=== PATIENT | female | born 2000 | race Two or more races ===

== ENCOUNTER 2020-05-26 16:35 | Outpatient (CLI) | payer OTHER | END 2020-05-26 16:42 | disposition home or self-care (01) | LOC: LAB 16:35 | PROVIDERS: ATTEND General Practice | DX: Z32.00 Encounter for pregnancy test, result unknown (principal); N39.0 Urinary tract infection, site not specified; D64.89 Other specified anemias ==

== ENCOUNTER 2020-05-26 19:22 | Emergency (ER) | payer OTHER ==
[~2020-05-26] VITALS: Ht 167.6 cm; Wt 59.4 kg
== END 2020-05-26 22:14 | disposition home or self-care (01) ==
LOC: ER 19:22
DX: N20.1 Calculus of ureter (principal)

== ENCOUNTER → 2020-06-04 | Outpatient (CLI) | payer OTHER | END | disposition home or self-care (01) | LOC: TOM 08:16 | PROVIDERS: ATTEND General Practice | DX: N83.292 Other ovarian cyst, left side (principal); R10.84 Generalized abdominal pain ==

== ENCOUNTER 2021-07-21 10:42 | Outpatient (CLI) | payer OTHER | END 2021-07-21 10:46 | disposition home or self-care (01) | LOC: LAB 10:42 | DX: D51.3 Other dietary vitamin B12 deficiency anemia (principal); E55.9 Vitamin D deficiency, unspecified; N30.00 Acute cystitis without hematuria; E78.49 Other hyperlipidemia; N83.299 Other ovarian cyst, unspecified side ==

== ENCOUNTER → 2022-11-17 | Outpatient (CLI) | payer OTHER | END | disposition home or self-care (01) | LOC: SONOGRAMA 13:06 | PROVIDERS: ATTEND Obstetrics & Gynecology | DX: E03.9 Hypothyroidism, unspecified (principal) ==

== ENCOUNTER 2023-07-30 06:34 | Emergency (ER) | payer OTHER ==
[~2023-07-30] VITALS: Ht 167.6 cm; Wt 63.0 kg
[2023-07-30] MEDS ORDERED: SYNTHROID50 MCG (06:49)
[2023-07-30 09:15] LABS: HEMOGLOBIN 14.2 g/dL (12.0-15.00); MEAN CELL VOLUME 92.1 fL (80.00-100.00); MEAN CORPUSCULAR HEMOGLOBIN 31.9 pg (27.00-32.0); MEAN CORPUSCULAR HGB CONC 34.7 g/dl (32.0-36.0); PLATELET COUNT 149 K/uL (150-450); RED BLOOD COUNT 4.45 M/uL (4.00-6.00); RED CELL DISTRIBUTION WIDTH 12.6 % (11.5-14.5)
== END 2023-07-30 11:26 | disposition home or self-care (01) ==
LOC: ER 06:34
DX: B34.9 Viral infection, unspecified (principal); R05.9 Cough, unspecified; Z20.822 Contact with and (suspected) exposure to COVID-19; E03.8 Other specified hypothyroidism